=== PATIENT | female | born 1945 | race Caucasian/White ===

== ENCOUNTER 2021-08-01 09:28 | Inpatient (IN) ==
[2021-08-01] MEDS ORDERED: SODIUM CHLORIDE 0.9% 1,000 ML IV STA (10:29)
[2021-08-01 10:37] LABS: Albumin 3.8 G/DL (3.4-5.0); Basophils % 0.6 % (0.0-0.8); Bilirubin,Total 0.8 MG/DL (0.20-1.00); Calcium 10.1 MG/DL (8.5-10.1); Eosinophils # 0.1 10*3/uL (0.0-0.87); Eosinophils % 0.9 % (0.00-10.9); Hematocrit 39.4 VOL% (35.7-47.0); Hemoglobin 11.9 GM/DL (12.0-16.0); Immature Granulocytes % 0.4 %; Immature Granulocytes Absolute 0.02 #; Lymphocytes # 1.2 10*3/uL (1.4-4.0); Lymphocytes % 22.9 % (21.3-54.2); Mean Corpuscular HGB Conc 30.2 GM/DL (32-36); Mean Corpuscular Volume 99.2 FL (87-102); Mean Platelet Volume 12.3 FL (9.6-12.0); Monocytes % 7.6 % (1.7-12.7); Neutrophils % 67.6 % (38.7-73.9); Osmolality,Calculated 274.8 MOS/KG (273-304); Platelet Count 149 T/CUMM (130-400); Potassium 4.1 MMOL/L (3.5-5.1); Red Blood Count 3.97 MC/CUMM (3.8-5.5); Red Cell Distribution Width 12.2 % (9.3-17.3); Total Protein 6.8 G/DL (6.4-8.2); White Blood Count 5.4 T/CUMM (4-12)
[2021-08-01 11:03] LABS: Amorphous Crystals,Urine Occasional /HPF (Few); Bilirubin,Urine Negative (Negative); Blood, Urine Negative (Negative); Glucose,Urine (UA) Negative (Negative); Hyaline Casts,Urine 3 /LPF (0-3); Ketones,Urine 20 mg/dL (Negative); Mucus,Urine Occasional /LPF (Occasional); Nitrite,Urine Negative (Negative); Protein,Urine Negative; RBC,Urine 2 /HPF (0-4); Urine Appearance Slightly Hazy (Clear); Urine Color Yellow (Yellow); Urine Specific Gravity 1.013 (1.001-1.035)
[2021-08-01] MEDS ORDERED: GLUCAGON 1 MG VIAL IM PRN (14:48)
[2021-08-01] MEDS ORDERED: hydrALAZINE 20 MG/1 ML VIAL IV PRN (14:48)
[2021-08-01] MEDS ORDERED: DEXTROSE 50% 25 GM/50 ML VIAL IV PRN (14:48)
[2021-08-01] MEDS ORDERED: ZALEPLON 5 MG CAPSULE PO PRN (14:48)
[2021-08-01] MEDS ORDERED: NITROGLYCERIN SL 0.4 MG TABLET SL PRN (16:51)
[2021-08-01 18:07] LABS: Risk Ratio 3.58; Thyroid Stimulating Hormone 1.54 uIU/ml (0.358-3.74); VLDL Cholesterol 14.6 MG/DL
[2021-08-01] MEDS: ENOXAPARIN 40 MG/0.4 ML SYRINGE SUBCUT SCH (18:15)
[2021-08-01] MEDS: SODIUM CHLORIDE 0.9% 1,000 ML IV SCH (19:26)
[2021-08-02 04:37] LABS: Basophils % 0.3 % (0.0-0.8); Eosinophils # 0.1 10*3/uL (0.0-0.87); Hematocrit 36.4 VOL% (35.7-47.0); Hemoglobin 11.1 GM/DL (12.0-16.0); Immature Granulocytes % 0.2 %; Immature Granulocytes Absolute 0.01 #; Lymphocytes # 1.3 10*3/uL (1.4-4.0); Lymphocytes % 20.8 % (21.3-54.2); Mean Corpuscular HGB Conc 30.5 GM/DL (32-36); Mean Corpuscular Volume 99.7 FL (87-102); Mean Platelet Volume 11.9 FL (9.6-12.0); Monocytes % 6.6 % (1.7-12.7); Neutrophils % 71.1 % (38.7-73.9); Platelet Count 141 T/CUMM (130-400); Red Blood Count 3.65 MC/CUMM (3.8-5.5); Red Cell Distribution Width 12.1 % (9.3-17.3); White Blood Count 6.2 T/CUMM (4-12)
[2021-08-02 04:52] LABS: Calcium 9.2 MG/DL (8.5-10.1); Osmolality,Calculated 274.5 MOS/KG (273-304)
[2021-08-02] MEDS: SODIUM CHLORIDE 0.9% 1,000 ML IV SCH ×2 (05:20→15:37)
[2021-08-02] MEDS: ASPIRIN CHEW 81 MG TABLET PO SCH (08:40)
[2021-08-02] MEDS: PANTOPRAZOLE 40 MG TABLET PO SCH (08:40)
[2021-08-02] MEDS: ACETAMINOPHEN 325 MG TABLET PO PRN ×2 (08:40→14:47)
[2021-08-02] MEDS: ONDANSETRON 4 MG/2 ML VIAL IV PRN ×4 (08:41→20:52)
[2021-08-02] MEDS: METOPROLOL TARTRATE 25 MG TABLET PO SCH ×2 (12:44→20:44)
[2021-08-02] MEDS: ENOXAPARIN 40 MG/0.4 ML SYRINGE SUBCUT SCH (17:48)
[2021-08-03] MEDS: SODIUM CHLORIDE 0.9% 1,000 ML IV SCH ×2 (01:00→11:07)
[2021-08-03 06:31] LABS: Calcium 8.8 MG/DL (8.5-10.1)
[2021-08-03 06:40] LABS: Basophils % 0.2 % (0.0-0.8); Eosinophils # 0.1 10*3/uL (0.0-0.87); Eosinophils % 1.1 % (0.00-10.9); Immature Granulocytes % 0.4 %; Immature Granulocytes Absolute 0.02 #; Lymphocytes # 1.1 10*3/uL (1.4-4.0); Lymphocytes % 23.7 % (21.3-54.2); Mean Corpuscular HGB Conc 29.7 GM/DL (32-36); Mean Corpuscular Volume 101.9 FL (87-102); Mean Platelet Volume 12.5 FL (9.6-12.0); Monocytes % 7.5 % (1.7-12.7); Neutrophils % 67.1 % (38.7-73.9); Platelet Count 143 T/CUMM (130-400); Red Blood Count 3.63 MC/CUMM (3.8-5.5); White Blood Count 4.6 T/CUMM (4-12)
[2021-08-03 06:50] LABS: Potassium 3.8 MMOL/L (3.5-5.1)
[2021-08-03 07:12] LABS: Platelet Estimate Adequate; Polychromasia Slight
[2021-08-03] MEDS: ONDANSETRON 4 MG/2 ML VIAL IV PRN ×2 (07:17→17:03)
[2021-08-03] MEDS: MONTELUKAST 10 MG TABLET PO SCH (08:40)
[2021-08-03] MEDS: ASPIRIN CHEW 81 MG TABLET PO SCH (08:40)
[2021-08-03] MEDS: PANTOPRAZOLE 40 MG TABLET PO SCH (08:40)
[2021-08-03] MEDS: METOPROLOL TARTRATE 25 MG TABLET PO SCH ×2 (08:40→20:56)
[2021-08-03] MEDS ORDERED: ALPRAZolam 0.25 MG TABLET PO PRN (09:55)
[2021-08-03] MEDS ORDERED: SERTRALINE 25 MG TABLET PO SCH (10:00)
[2021-08-03] MEDS ORDERED: CYANOCOBALAMIN 1000 MCG/1 ML VIAL IM SCH (10:00)
[2021-08-03] MEDS ORDERED: SIMETHICONE CHEW 80 MG TABLET PO PRN (10:01)
[2021-08-03] MEDS: POLYETHYLENE GLYCOL POWDER 17 GM PACK PO SCH (10:33)
[2021-08-03] MEDS: ALPRAZolam 0.25 MG TABLET PO PRN ×2 (10:35→20:56)
[2021-08-03] MEDS ORDERED: MAGNESIUM HYDROXIDE SUSP 30 ML UDCUP PO PRN (12:55)
[2021-08-03] MEDS: ENOXAPARIN 40 MG/0.4 ML SYRINGE SUBCUT SCH (17:54)
[2021-08-03] MEDS: SERTRALINE 25 MG TABLET PO SCH (20:56)
[2021-08-03] MEDS: RILUZOLE 50 MG PO SCH (20:59)
[2021-08-04] MEDS: SODIUM CHLORIDE 0.9% 1,000 ML IV SCH (00:32)
[2021-08-04] MEDS: ALPRAZolam 0.25 MG TABLET PO PRN ×3 (05:55→20:55)
[2021-08-04] MEDS: ONDANSETRON 4 MG/2 ML VIAL IV PRN (05:55)
[2021-08-04 07:51] LABS: Blood Urea Nitrogen 4 MG/DL (7-18); Calcium 8.6 MG/DL (8.5-10.1); Carbon Dioxide 44 MMOL/L (21-32); Estimated Glom Filtration Rate 114 ML/MIN; Glucose 97 MG/DL (74-106); Potassium 3.5 MMOL/L (3.5-5.1); Sodium 136 MMOL/L (136-145)
[2021-08-04] MEDS: DOCUSATE SODIUM 100 MG CAPSULE PO SCH ×2 (08:40→20:54)
[2021-08-04] MEDS: ASPIRIN CHEW 81 MG TABLET PO SCH (08:40)
[2021-08-04] MEDS: RILUZOLE 50 MG PO SCH ×2 (08:40→20:55)
[2021-08-04] MEDS: METOPROLOL TARTRATE 25 MG TABLET PO SCH ×2 (08:40→20:55)
[2021-08-04] MEDS: PANTOPRAZOLE 40 MG TABLET PO SCH (08:40)
[2021-08-04] MEDS: POLYETHYLENE GLYCOL POWDER 17 GM PACK PO SCH (08:40)
[2021-08-04] MEDS: MONTELUKAST 10 MG TABLET PO SCH (08:40)
[2021-08-04 09:25] LABS: Basophils % 0.5 % (0.0-0.8); Eosinophils % 0.5 % (0.00-10.9); Hematocrit 37.5 VOL% (35.7-47.0); Hemoglobin 10.8 GM/DL (12.0-16.0); Immature Granulocytes % 0.5 %; Immature Granulocytes Absolute 0.02 #; Lymphocytes # 0.7 10*3/uL (1.4-4.0); Lymphocytes % 16.5 % (21.3-54.2); Mean Corpuscular HGB Conc 28.8 GM/DL (32-36); Mean Corpuscular Volume 101.9 FL (87-102); Mean Platelet Volume 12.2 FL (9.6-12.0); Monocytes % 7.7 % (1.7-12.7); Neutrophils % 74.3 % (38.7-73.9); Platelet Count 125 T/CUMM (130-400); Red Blood Count 3.68 MC/CUMM (3.8-5.5); Red Cell Distribution Width 12.1 % (9.3-17.3); White Blood Count 4.2 T/CUMM (4-12)
[2021-08-04] MEDS: LEVALBUTEROL 1.25 MG/3 ML NEB RESP TX SCH (15:36)
[2021-08-04] MEDS: SERTRALINE 25 MG TABLET PO SCH (20:55)
[2021-08-05] MEDS: LEVALBUTEROL 1.25 MG/3 ML NEB RESP TX SCH ×4 (00:20→23:50)
[2021-08-05] MEDS: SODIUM CHLORIDE 0.9% 1,000 ML IV SCH (02:40)
[2021-08-05] MEDS: ONDANSETRON 4 MG/2 ML VIAL IV PRN (04:03)
[2021-08-05 04:43] LABS: Basophils % 0.3 % (0.0-0.8); Eosinophils # 0.1 10*3/uL (0.0-0.87); Eosinophils % 1.2 % (0.00-10.9); Hematocrit 37.4 VOL% (35.7-47.0); Hemoglobin 11.2 GM/DL (12.0-16.0); Immature Granulocytes % 0.3 %; Immature Granulocytes Absolute 0.02 #; Lymphocytes # 1.4 10*3/uL (1.4-4.0); Lymphocytes % 24.8 % (21.3-54.2); Mean Corpuscular HGB Conc 29.9 GM/DL (32-36); Mean Corpuscular Volume 98.2 FL (87-102); Mean Platelet Volume 12.4 FL (9.6-12.0); Monocytes % 7.9 % (1.7-12.7); Neutrophils % 65.5 % (38.7-73.9); Platelet Count 143 T/CUMM (130-400); Red Blood Count 3.81 MC/CUMM (3.8-5.5); Red Cell Distribution Width 11.8 % (9.3-17.3); White Blood Count 5.8 T/CUMM (4-12)
[2021-08-05 06:42] LABS: Blood Urea Nitrogen 3 MG/DL (7-18); Calcium 8.8 MG/DL (8.5-10.1); Estimated Glom Filtration Rate 99 ML/MIN; Glucose 127 MG/DL (74-106); Osmolality,Calculated 264.4 MOS/KG (273-304); Potassium 3.7 MMOL/L (3.5-5.1); Sodium 133 MMOL/L (136-145)
[2021-08-05 06:55] LABS: Carbon Dioxide 47 MMOL/L (21-32)
[2021-08-05 07:12] LABS: INR 1.1; PT Patient Result 11.7 SECS (10.5-12.0)
[2021-08-05] MEDS: LACTATED RINGERS 1,000 ML IV SCH (07:35)
[2021-08-05] MEDS ORDERED: LIDOCAINE 2% 5 ML VIAL ONE (09:41)
[2021-08-05] MEDS ORDERED: propofoL 200 MG/20 ML VIAL IV ONE (09:41)
[2021-08-05] MEDS ORDERED: PHENYLEPHRINE 1 MG/10 ML SYRINGE IV ONE (09:55)
[2021-08-05] MEDS: ALPRAZolam 0.25 MG TABLET PO PRN ×2 (11:07→22:18)
[2021-08-05] MEDS: MONTELUKAST 10 MG TABLET PO SCH (11:08)
[2021-08-05] MEDS: PANTOPRAZOLE 40 MG TABLET PO SCH (11:08)
[2021-08-05] MEDS: ASPIRIN CHEW 81 MG TABLET PO SCH (11:08)
[2021-08-05] MEDS: RILUZOLE 50 MG PO SCH ×2 (11:08→22:19)
[2021-08-05] MEDS: DOCUSATE SODIUM 100 MG CAPSULE PO SCH ×2 (11:08→22:18)
[2021-08-05] MEDS: POLYETHYLENE GLYCOL POWDER 17 GM PACK PO SCH (11:08)
[2021-08-05] MEDS: METOPROLOL TARTRATE 25 MG TABLET PO SCH ×2 (11:08→22:18)
[2021-08-05] MEDS ORDERED: NON-FORMULARY MEDICATION IV SCH (13:00)
[2021-08-05] MEDS: ACETAMINOPHEN 325 MG TABLET PO PRN (15:17)
[2021-08-05] MEDS ORDERED: RADICAVA IV SCH (21:00)
[2021-08-05] MEDS: SERTRALINE 25 MG TABLET PO SCH (22:18)
[2021-08-06] MEDS: ALPRAZolam 0.25 MG TABLET PO PRN ×2 (05:51→22:39)
[2021-08-06 07:21] LABS: Blood Urea Nitrogen 8 MG/DL (7-18); Calcium 9.1 MG/DL (8.5-10.1); Estimated Glom Filtration Rate 97 ML/MIN; Glucose 192 MG/DL (74-106); Osmolality,Calculated 260.9 MOS/KG (273-304); Potassium 3.7 MMOL/L (3.5-5.1); Sodium 129 MMOL/L (136-145)
[2021-08-06] MEDS: LEVALBUTEROL 1.25 MG/3 ML NEB RESP TX SCH ×2 (07:40→14:26)
[2021-08-06 08:26] LABS: Carbon Dioxide 48 MMOL/L (21-32)
[2021-08-06] MEDS ORDERED: DEXAMETHASONE 10 MG/1 ML VIAL IV ONE (09:27)
[2021-08-06] MEDS: LACTATED RINGERS 1,000 ML IV SCH (09:41)
[2021-08-06] MEDS: SODIUM CHLORIDE 0.9% 1,000 ML IV SCH ×2 (09:42→12:19)
[2021-08-06 10:10] LABS: ABG Base Excess 15.7 MMOL/L (-2.5-2.5); ABG HCO3 39.7 MMOL/L (20-26); ABG Oxygen Saturation 98.1 % (95-100); ABG TCO2 48.8 MMOL/L (23-27); Pt O2 Delivery Device Simple Mask
[2021-08-06 10:16] LABS: ABG PH 7.123 (7.35-7.45)
[2021-08-06 11:33] LABS: ABG Base Excess 18.8 MMOL/L (-2.5-2.5); ABG HCO3 53.3 MMOL/L (20-26); ABG Oxygen Saturation 92.5 % (95-100); ABG PO2 68.9 MM HG (80-95); ABG TCO2 58.4 MMOL/L (23-27)
[2021-08-06 11:38] LABS: ABG PH 7.127 (7.35-7.45)
[2021-08-06] MEDS ORDERED: SODIUM BICARBONATE 50 MEQ/50 ML VIAL IV ONE ×2 (11:44→12:00)
[2021-08-06] MEDS: ASPIRIN CHEW 81 MG TABLET PO SCH (12:07)
[2021-08-06] MEDS: DOCUSATE SODIUM 100 MG CAPSULE PO SCH ×2 (12:07→22:38)
[2021-08-06] MEDS: METOPROLOL TARTRATE 25 MG TABLET PO SCH ×2 (12:07→22:39)
[2021-08-06] MEDS: MONTELUKAST 10 MG TABLET PO SCH (12:07)
[2021-08-06] MEDS: RILUZOLE 50 MG PO SCH ×2 (12:08→22:38)
[2021-08-06] MEDS: POLYETHYLENE GLYCOL POWDER 17 GM PACK PO SCH (12:08)
[2021-08-06] MEDS: PANTOPRAZOLE 40 MG TABLET PO SCH (12:08)
[2021-08-06 13:09] LABS: ABG Base Excess 21.6 MMOL/L (-2.5-2.5); ABG HCO3 46.1 MMOL/L (20-26); ABG Oxygen Saturation 97.7 % (95-100); ABG TCO2 51.1 MMOL/L (23-27)
[2021-08-06 15:17] LABS: ABG Base Excess 19.9 MMOL/L (-2.5-2.5); ABG HCO3 44.3 MMOL/L (20-26); ABG Oxygen Saturation 97.9 % (95-100); ABG PH 7.235 (7.35-7.45); ABG TCO2 49.2 MMOL/L (23-27); Allen Test Positive; Pt O2 Delivery Device BIPAP
[2021-08-06] MEDS: GABAPENTIN 300 MG CAPSULE PO SCH (22:37)
[2021-08-06] MEDS: SERTRALINE 25 MG TABLET PO SCH (22:39)
[2021-08-06] MEDS: RADICAVA IV SCH (22:39)
[2021-08-07] MEDS: LEVALBUTEROL 1.25 MG/3 ML NEB RESP TX SCH ×3 (00:10→14:05)
[2021-08-07] MEDS: ALPRAZolam 0.25 MG TABLET PO PRN ×3 (07:27→21:55)
[2021-08-07 07:42] LABS: Eosinophils % 0.2 % (0.00-10.9); Hematocrit 29.8 VOL% (35.7-47.0); Hemoglobin 9.3 GM/DL (12.0-16.0); Immature Granulocytes % 0.2 %; Immature Granulocytes Absolute 0.02 #; Lymphocytes # 1.2 10*3/uL (1.4-4.0); Lymphocytes % 13.2 % (21.3-54.2); Mean Corpuscular HGB Conc 31.2 GM/DL (32-36); Monocytes % 8.5 % (1.7-12.7); Neutrophils % 77.9 % (38.7-73.9); Platelet Count 131 T/CUMM (130-400); Red Blood Count 3.04 MC/CUMM (3.8-5.5); Red Cell Distribution Width 12.2 % (9.3-17.3); White Blood Count 9.2 T/CUMM (4-12)
[2021-08-07 07:51] LABS: ABG Base Excess 21.5 MMOL/L (-2.5-2.5); ABG HCO3 46.1 MMOL/L (20-26); ABG PH 7.281 (7.35-7.45); ABG TCO2 49.5 MMOL/L (23-27); Allen Test Positive; Pt O2 Delivery Device Simple Mask
[2021-08-07 08:23] LABS: Folate 9.09 NG/ML (5.38-24.0)
[2021-08-07 08:49] LABS: % Iron Saturation 50.8 % (18-50)
[2021-08-07] MEDS: PIPERACILLIN/TAZOBACTAM 3,375 MG in SODIUM CHLORIDE 0.9% 100 ML IV SCH ×2 (09:23→17:15)
[2021-08-07] MEDS: ASPIRIN CHEW 81 MG TABLET PO SCH (09:23)
[2021-08-07] MEDS: RILUZOLE 50 MG PO SCH ×2 (09:23→21:55)
[2021-08-07] MEDS: METOPROLOL TARTRATE 25 MG TABLET PO SCH ×2 (09:23→21:55)
[2021-08-07] MEDS: GABAPENTIN 300 MG CAPSULE PO SCH ×2 (09:23→21:55)
[2021-08-07] MEDS: MONTELUKAST 10 MG TABLET PO SCH (09:23)
[2021-08-07] MEDS: POLYETHYLENE GLYCOL POWDER 17 GM PACK PO SCH (09:24)
[2021-08-07] MEDS: PANTOPRAZOLE 40 MG TABLET PO SCH (09:24)
[2021-08-07] MEDS: DOCUSATE SODIUM 100 MG CAPSULE PO SCH ×2 (09:24→21:55)
[2021-08-07 09:39] LABS: Albumin 2.8 G/DL (3.4-5.0); Bilirubin,Total 0.4 MG/DL (0.20-1.00); Osmolality,Calculated 270.1 MOS/KG (273-304); Potassium 3.7 MMOL/L (3.5-5.1); Total Protein 5.5 G/DL (6.4-8.2)
[2021-08-07] MEDS: LACTATED RINGERS 1,000 ML IV SCH (10:38)
[2021-08-07] MEDS: SODIUM CHLORIDE 0.9% 1,000 ML IV SCH ×2 (10:40→13:05)
[2021-08-07 12:31] LABS: ABG Base Excess 19.1 MMOL/L (-2.5-2.5); ABG HCO3 43.3 MMOL/L (20-26); ABG Oxygen Saturation 94.8 % (95-100); ABG PO2 79.6 MM HG (80-95); ABG TCO2 45.5 MMOL/L (23-27)
[2021-08-07 12:35] LABS: ABG PCO2 90.4 MM HG (35-48)
[2021-08-07] MEDS: ENOXAPARIN 40 MG/0.4 ML SYRINGE SUBCUT SCH (17:42)
[2021-08-07] MEDS: OMEPRAZOLE ODT 20 MG TABLET PER TUBE SCH (21:55)
[2021-08-07] MEDS: SERTRALINE 25 MG TABLET PO SCH (21:55)
[2021-08-07] MEDS: RADICAVA IV SCH (22:15)
[2021-08-08] MEDS: PIPERACILLIN/TAZOBACTAM 3,375 MG in SODIUM CHLORIDE 0.9% 100 ML IV SCH ×2 (00:47→09:17)
[2021-08-08] MEDS: LEVALBUTEROL 1.25 MG/3 ML NEB RESP TX SCH ×2 (00:50→07:15)
[2021-08-08 03:48] LABS: ABG Base Excess 12.5 MMOL/L (-2.5-2.5); ABG HCO3 36.3 MMOL/L (20-26); ABG Oxygen Saturation 97.5 % (95-100); ABG PH 7.224 (7.35-7.45); ABG TCO2 41.5 MMOL/L (23-27)
[2021-08-08 05:51] LABS: Eosinophils % 0.4 % (0.00-10.9); Hematocrit 28.5 VOL% (35.7-47.0); Hemoglobin 8.6 GM/DL (12.0-16.0); Immature Granulocytes % 0.4 %; Immature Granulocytes Absolute 0.03 #; Lymphocytes # 0.7 10*3/uL (1.4-4.0); Lymphocytes % 9.4 % (21.3-54.2); Mean Corpuscular HGB Conc 30.2 GM/DL (32-36); Mean Platelet Volume 12.9 FL (9.6-12.0); Monocytes % 8.4 % (1.7-12.7); Neutrophils % 81.4 % (38.7-73.9); Platelet Count 119 T/CUMM (130-400); Red Blood Count 2.88 MC/CUMM (3.8-5.5); Red Cell Distribution Width 12.4 % (9.3-17.3); White Blood Count 7.5 T/CUMM (4-12)
[2021-08-08 06:13] LABS: Calcium 8.3 MG/DL (8.5-10.1)
[2021-08-08 06:21] LABS: Osmolality,Calculated 268.5 MOS/KG (273-304); Potassium 3.3 MMOL/L (3.5-5.1)
[2021-08-08] MEDS ORDERED: POTASSIUM CHLORIDE 20 MEQ TABLET PO ONE (08:21)
[2021-08-08] MEDS ORDERED: MAGNESIUM SULF RIDER 2 GM/50 ML PREMIX IV ONE (08:22)
[2021-08-08] MEDS: METOPROLOL TARTRATE 25 MG TABLET PO SCH ×2 (09:17→21:53)
[2021-08-08] MEDS: GABAPENTIN 300 MG CAPSULE PO SCH ×2 (09:17→21:53)
[2021-08-08] MEDS: ASPIRIN CHEW 81 MG TABLET PO SCH (09:17)
[2021-08-08] MEDS: OMEPRAZOLE ODT 20 MG TABLET PER TUBE SCH ×2 (09:18→21:54)
[2021-08-08] MEDS: MONTELUKAST 10 MG TABLET PO SCH (09:18)
[2021-08-08] MEDS: DOCUSATE SODIUM 100 MG CAPSULE PO SCH ×2 (09:19→21:53)
[2021-08-08] MEDS: RILUZOLE 50 MG PO SCH ×2 (09:20→21:53)
[2021-08-08] MEDS: POLYETHYLENE GLYCOL POWDER 17 GM PACK PO SCH (09:20)
[2021-08-08] MEDS ORDERED: NON-FORMULARY MEDICATION (Alendronate 35 mg Tablet) PO SCH (09:55)
[2021-08-08] MEDS: LACTATED RINGERS 1,000 ML IV SCH (11:11)
[2021-08-08] MEDS: SODIUM CHLORIDE 0.9% 1,000 ML IV SCH (11:14)
[2021-08-08 12:10] LABS: ABG HCO3 34.7 MMOL/L (20-26); ABG Oxygen Saturation 94.9 % (95-100); ABG PH 7.335 (7.35-7.45); ABG PO2 77.2 MM HG (80-95); ABG TCO2 36.6 MMOL/L (23-27)
[2021-08-08 12:12] LABS: ABG PCO2 73.6 MM HG (35-48)
[2021-08-08] MEDS ORDERED: LEVALBUTEROL 1.25 MG/3 ML NEB RESP TX PRN (13:47)
[2021-08-08] MEDS: ENOXAPARIN 40 MG/0.4 ML SYRINGE SUBCUT SCH ×2 (17:53→18:27)
[2021-08-08] MEDS: SERTRALINE 25 MG TABLET PO SCH (21:53)
[2021-08-08] MEDS: RADICAVA IV SCH (22:30)
[2021-08-09] MEDS: ACETAMINOPHEN 325 MG TABLET PO PRN (02:24)
[2021-08-09] MEDS: DOCUSATE SODIUM 100 MG CAPSULE PO SCH (10:16)
[2021-08-09] MEDS: RILUZOLE 50 MG PO SCH (10:16)
[2021-08-09] MEDS: GABAPENTIN 300 MG CAPSULE PO SCH (10:16)
[2021-08-09] MEDS: MONTELUKAST 10 MG TABLET PO SCH (10:16)
[2021-08-09] MEDS: OMEPRAZOLE ODT 20 MG TABLET PER TUBE SCH (10:16)
[2021-08-09] MEDS: METOPROLOL TARTRATE 25 MG TABLET PO SCH (10:16)
[2021-08-09] MEDS: ASPIRIN CHEW 81 MG TABLET PO SCH (10:43)
[2021-08-09 16:14] VITALS: BP 155/78
== END 2021-08-09 16:36 | disposition hospice, home (50) | DRG 56 ==
LOC: N.ED 09:28 → N.TELES 14:48 → SUATTDRO 14:48 → N.TELES 16:50
PROVIDERS: ADMIT Internal Medicine; ATTEND Internal Medicine
PROC: EGDWPEG (ICD-10-PCS; 2021-08-05 07:50)